=== PATIENT | female | born 1985 | race Caucasian/White ===

== ENCOUNTER 2017-08-10 10:36 | Emergency (ER) | payer OTHER, SELFPAY ==
[~2017-08-10] VITALS: Ht 172.7 cm; Wt 74.0 kg
[2017-08-10 10:38] VITALS: BP 124/80
[2017-08-10] MEDS ORDERED: HYDROcodone/APAP 5/325 TABLET ONE (11:19)
[2017-08-10] MEDS ORDERED: HYDROcodone/APAP 5/325 TABLET PO PRN (11:30)
== END 2017-08-10 11:48 | disposition home or self-care (01) ==
LOC: ED 11:01
DX: S16.1XXA Strain of muscle, fascia and tendon at neck level, initial encounter (principal); M25.461 Effusion, right knee; V00.311A Fall from snowboard, initial encounter; Y93.23 Activity, snow (alpine) (downhill) skiing, snowboarding, sledding, tobogganing and snow tubing; Y99.8 Other external cause status; Y92.89 Other specified places as the place of occurrence of the external cause
CPT/HCPCS: 99284